=== PATIENT | male | born 1995 | race Caucasian/White ===

== ENCOUNTER 2023-04-10 11:00 | Emergency (ER) | payer MEDICAID, SELFPAY ==
[2023-04-10 11:01] VITALS: BP 123/107; PULSE 85; RESP 18; TEMP 36.4; O2SAT 100; BMI 31.4
--- NOTE | 2023-04-10 11:22 | EX.ED.DYSGE1 ---
HPI History of Present Illness Chief Complaint: Depression Informant: patient Narrative Narrative: Pain presents here looking for assistance for his intermittent explosive disorders. He has had all his life. Comes to the ED stating he does not have a PCP. No diagnosed medical history. He has tobacco history denies alcohol or illicit drug use. He states he has a brother similar symptoms who saw his family doctor and was started on medication and he notices that it has been helping his brother. He did not know where to go therefore came here. Denies suicidal homicidal ideations. Denies any auditory or visual hallucinations. Prior similar symptoms: Yes PFSH PFSH Medical History no medical history Home Medications NK 04/10/23 [History Last Taken Unknown] Allergy/AdvReac Type Severity Reaction Status Date / Time No Known Allergies Allergy Verified 04/10/23 11:02 Social History Smoking Status: Current every day smoker tobacco type: cigarettes ROS ROS ED Constitutional Constitutional ED: Denies chills, fever(s) or sweats Eyes Eyes: Denies change in vision ENT ENT ED: Denies dysphagia or sore throat Cardiovascular Cardiovascular: Denies chest pain, leg edema, palpitations or racing heartbeat Respiratory/Chest Respiratory/Chest: Denies cough, dyspnea or dyspnea on exertion Gastrointestinal Gastrointestinal: Denies abdominal pain, diarrhea, nausea or vomiting Genitourinary Genitourinary ED: Denies dysuria, hematuria or urinary frequency Musculoskeletal Musculoskeletal: Denies back pain, extremity pain or neck pain Integumentary Denies rash or wounds Neurologic Neurologic: Denies headache(s), paresthesias or weakness Psychiatric Psychiatric: Denies depression, suicidal ideation or suicidal thoughts EXAM Physical Exam Const Vital Signs: 04/10/23 11:01 Temperature 97.6 F L Temperature Source Temporal Pulse Rate 85 Respiratory Rate 18 Blood Pressure 123/107 H Blood Pressure Mean 112 Pulse Ox 100 Oxygen Delivery Method Room Air Positive well nourished and well developed Constitutional Narrative: Cooperative, smiling on exam. General Appearance ED: well developed and NAD HEENT Reports moist mucous membranes normocephalic and atraumatic Eyes PERRL, EOMs intact bilaterally and conjunctivae normal General Eye ED: Yes normal appearance of both eyes Neck no lymphadenopathy and supple General: Negative for tenderness Chest Wall Chest: Negative for tenderness Resp normal respiratory effort and normal air movement Effort and Inspection: symmetric chest movement; Negative for respiratory distress Cardio regular rate, regular rhythm and no murmurs Peripheral Pulses: pulses 2+ throughout GI normal to inspection, nondistended, normoactive bowel sounds and non-tender Palpation: Negative for guarding or rebound tenderness present Back/Spine no CVA tenderness and no thoracic nor lumbar tenderness Extremity normal to inspection General Extremety ED: Negative for edema or tenderness General Extremity: Negative for edema Neuro oriented x3 and no sensory deficits noted Sensorium / Orientation: awake and alert Psych mental status grossly normal Psych Narrative: No suicidal homicidal ideations. Skin no rashes or lesions noted and no wounds MDM MDM MDM Narrative Medical decision making narrative: Interventions / MDM: Differential diagnosis: Intermittent explosive disorder Diagnosis considered but do not suspect: Denies suicidal homicidal ideations. My EKG interpretation: N/A Imaging independently reviewed and interpreted by myself: N/A External documents reviewed: N/A Test considered but not ordered:N/A ED course: Patient cooperative nontoxic no suicidal homicidal ideations. From history concerns for intermittent explosive disorder. Does not know what medication his brother was started on by his PCP. Not have any insurance currently. He will be given [facility] also will have case management speak with him the ED for additional resources. He will discuss his brother the medications for potential outpatient management and treatment. Re-evaluation: stable Disposition discussed with patient/family/significant other: Patient Case discussed with consulting clinician: N/A This note was generated with [employer] dictation software. It may contain incorrect words, spelling, and punctuation that were not noted in checking the note before signing. Discharge Plan Triage Chief Complaint: Depression ED Provider: Da Lund Dx/Rx/DC Orders Clinical Impression: Intermittent explosive disorder Instructions: ED Personality Disorder Prescriptions: No Action NK Primary Care Provider: Care Physician,No Primary Referrals: Rossi Brumfield [Non-Staff] - 1 Week Care Physician,No Primary [Primary Care Provider] - Activity Restrictions/Additional Instructions: You are describing intermittent explosive disorder. Discussed with your brother medication he was started on. Follow-up as an outpatient with resources given for potential starting on medications. Disposition Disposition: Home, Self Care
--- NOTE | 2023-04-10 11:53 | CM.ED ---
Social Work Referral Source: RN/ MD Lund Referral Reason: resources SW contacted Rossi Brumfield to inquire about appointments for case management/psychiatry services. RADHA Shraddha reports [facility] currently has a PHARMACEUTICAL PHYSICIAN and other professional via telehealth assisting with psychiatry appointments with opens this month. Shraddha encouraged patient to contact for an insurance appointment and then they will assist with psychiatry and other needs. SW met with patient and introduced self and role as [facility] SW. Patient was agreeable to speak with SW. SW engaged patient in conversation regarding insurance and current community resources. Patient reports not being connected to any resources and explained he has been denied Medicaid historically. SW reviewed conversation with [facility] for assistance with insurance and psychiatry services. Patient declined to have SW assist with calling while in ED but was receptive towards information. SW then reviewed [facility] resource list, Medicaid application, community counseling resources and provided education on the correlation between depression and anger including coping skills to try. Patient expressed his appreciation and states he has no other needs. Care team updated. Plan: community resources provided JHOAN Simmons
== END 2023-04-10 12:02 | disposition home or self-care (01) ==
LOC: ED 11:47
PROVIDERS: Emergency Provider Emergency Medicine; Visit Provider Emergency Medicine
DX: F32.A Depression, unspecified (principal); F17.210 Nicotine dependence, cigarettes, uncomplicated
CPT/HCPCS: 99282